=== PATIENT | female | born 1980 | race Caucasian/White ===

== ENCOUNTER 2017-09-22 07:39 | Emergency (ER) | payer SELFPAY ==
[2017-09-22] MEDS ORDERED: Alum Hydrox/Mag Hydrox/Simeth 15 ML, Metoclopramide 5 MG, Lidocaine 2% 5 ML PO ONE ×3 (07:53)
--- NOTE | 2017-09-22 07:57 | EDM.PDOC ---
ED HPI GENERAL MEDICAL PROBLEM - General Chief Complaint: General Stated Complaint: SHORTNESS OF BREATH Time Seen by Provider: 09/22/17 07:49 - History of Present Illness INITIAL COMMENTS - FREE TEXT/NARRATIVE: HISTORY AND PHYSICAL: History of present illness: The patient is a healthy 36-year-old female who presents after stating that she was in the bathtub about an hour ago and smoking a cigarette and accidentally fell asleep and believes that she swallowed half of her cigarette which was limited at that time. She has had no stomach upset but feels like there is discomfort in the back of her throat and she feels like she can't catch her breath. She has no chest pain no specific oral pain and has been drinking chilled Gatorade without difficulty. She has no stomach upset no nausea no vomiting and is concerned. She has no other complaints and was in her normal state of health prior to that. Review of systems: As per history of present illness and below otherwise all systems reviewed and negative. Past medical history: As per history of present illness and as reviewed below otherwise noncontributory. Surgical history: As per history of present illness and as reviewed below otherwise noncontributory. Social history: No reported history of drug or alcohol abuse. Family history: As per history of present illness and as reviewed below otherwise noncontributory. Physical exam: Gen.: Well-developed well-nourished female who is nontoxic and vital signs have been reviewed by me. She is phonating clearly and easily without hoarse or muffled voice and is swallowing fluids in the ED. She seems somewhat anxious HEENT: Atraumatic, normocephalic, pupils reactive, negative for conjunctival pallor or scleral icterus, mucous membranes moist, throat clear, neck supple, nontender, trachea midline. There are no oral pharyngeal lesions sores or erythema appreciated Lungs: Clear to auscultation, breath sounds equal bilaterally, chest nontender. No worker breathing stridor or sensory muscle use Heart: S1S2, regular rate and rhythm no evidence of murmur and no tachycardia Abdomen: Soft, nondistended, nontender. NABS Pelvis: Deferred Genitourinary: Deferred. Rectal: Deferred. Extremities: Atraumatic, negative for cords or calf pain. Neurovascular unremarkable. Neuro: Awake, alert, oriented. Cranial nerves II through XII unremarkable. Cerebellum unremarkable. Motor and sensory unremarkable throughout. Exam nonfocal. Diagnostics: [] Therapeutics: GI cocktail Impression: Accidental ingestion with odontophagia stable Definitive disposition and diagnosis as appropriate pending reevaluation and review of above. throat Pain Score (Numeric/FACES): 4 - Related Data Allergies Allergy/AdvReac Type Severity Reaction Status Date / Time codeine Allergy Itching Verified 09/22/17 07:45 Home Meds: Home Meds . [No Known Home Meds] 09/22/17 [History] ED ROS GENERAL - Review of Systems Review Of Systems: ROS reveals no pertinent complaints other than HPI. ED EXAM, GENERAL - Physical Exam Exam: See Below (See dictation) Course - Vital Signs Last Recorded V/S: Last Vital Signs Temp 36.2 C 09/22/17 07:45 Pulse 94 09/22/17 07:45 Resp 18 09/22/17 07:45 BP 119/74 09/22/17 07:45 Pulse Ox 100 09/22/17 07:45 - Orders/Labs/Meds Orders: Active Orders 24 hr Category Date Time Status GI Cocktail with Reglan 25 ML PO x 1 Med 09/22/17 07:53 Ordered Alum Hydrox/Mag Hydrox/Simeth [Mag-Al Plus] 15 ml Metoclopramide [Reglan] 5 mg Lidocaine 2% [Xylocaine 2% Viscous] 5 ml PO ONETIME Departure - Departure Time of Disposition: 07:56 Disposition: Home, Self-Care 01 Condition: Good Clinical Impression: Throat pain - Discharge Information Additional Instructions: The following information is given to patients seen in the emergency department who are being discharged to home. This information is to outline your options for follow-up care. We provide all patients seen in our emergency department with a follow-up referral. The need for follow-up, as well as the timing and circumstances, are variable depending upon the specifics of your emergency department visit. If you don't have a primary care physician on staff, we will provide you with a referral. We always advise you to contact your personal physician following an emergency department visit to inform them of the circumstance of the visit and for follow-up with them and/or the need for any referrals to a consulting specialist. The emergency department will also refer you to a specialist when appropriate. This referral assures that you have the opportunity for followup care with a specialist. All of these measure are taken in an effort to provide you with optimal care, which includes your followup. Under all circumstances we always encourage you to contact your private physician who remains a resource for coordinating your care. When calling for followup care, please make the office aware that this follow-up is from your recent emergency room visit. If for any reason you are refused follow-up, please contact the [facility] emergency department at and ask to speak to the emergency department charge nurse. [facility]- Internal Medicine and Family [address] [id number] Please continue to drink fluids and soft diet. Use [id number] Mylanta or lidocaine as prescribed. Please call and follow-up with primary care physician and return to ER as needed and as discussed. - My Orders Last 24 Hours: My Active Orders 09/22/17 07:53 GI Cocktail with Reglan 25 ML PO x 1 Alum Hydrox/Mag Hydrox/Simeth [Mag-Al Plus ] 15 ml Metoclopramide [Reglan] 5 mg Lidocaine 2% [Xylocaine 2% Viscous] 5 ml PO ONETIME - Assessment/Plan Last 24 Hours: My Active Orders 09/22/17 07:53 GI Cocktail with Reglan 25 ML PO x 1 Alum Hydrox/Mag Hydrox/Simeth [Mag-Al Plus ] 15 ml Metoclopramide [Reglan] 5 mg Lidocaine 2% [Xylocaine 2% Viscous] 5 ml PO ONETIME
--- NOTE | 2017-09-22 14:47 | CR ---
EXAM DATE: 09/22/17 PATIENT'S AGE: 36 Patient: SATHYA QUINTANILLA Facility: [place], [place] Site . Site : 1980 Study: XRay ST Neck [id number]/4/2017 8:47:40 AM Ordering Physician: Jose Luis Briseno Final Report: HISTORY: Possible foreign body ingestion. Technique: Two views of the neck. Comparison: None. Findings: Metallic jewelry in the oropharynx. No other radiopaque foreign body. Airway is patent. Cervical spine is within normal limits. Impression: Metallic jewelry in the oropharynx. No other radiopaque foreign body. Dictated by Chuck Girard MD @ Sep 22 2017 8:50AM (Electronic Signature) Report Signed by Proxy. [facility]ITAL[facility]acio
--- NOTE | 2017-09-22 14:48 | CR ---
EXAM DATE: 09/22/17 PATIENT'S AGE: 36 Patient: SATHYA QUINTANILLA Facility: [place], [place] Site . Site : 1980 Study: XRay Chest [id number]/4/2017 8:48:24 AM Ordering Physician: Jose Luis Briseno Final Report: HISTORY: Shortness of breath. Nausea. Possible foreign body ingestion. Technique: Frontal view of the chest. Comparison: None. Findings: No radiopaque foreign body. No airspace consolidation. No pleural effusion or pneumothorax. Pulmonary vasculature is within normal limits. Cardiomediastinal silhouette is within normal limits. Impression: No acute findings. No radiopaque foreign body. Dictated by Chuck Girard MD @ Sep 22 2017 8:53AM (Electronic Signature) Report Signed by Proxy. [facility] SYSTEM[facility]acio
== END 2017-09-22 09:18 | disposition home or self-care (01) ==
LOC: MW.ED 07:39
DX: T18.9XXA Foreign body of alimentary tract, part unspecified, initial encounter (principal); R07.0 Pain in throat; Z88.5 Allergy status to narcotic agent
CPT/HCPCS: 70360; 71010; 99283; A9270

== ENCOUNTER 2017-12-21 19:00 | Emergency (ER) | payer SELFPAY ==
--- NOTE | 2017-12-21 19:46 | EDM.PDOC ---
ED HPI GENERAL MEDICAL PROBLEM - General Stated Complaint: fever, vomiting Time Seen by Provider: 12/21/17 19:46 Source of Information: Reports: Patient History Limitations: Reports: No Limitations - History of Present Illness INITIAL COMMENTS - FREE TEXT/NARRATIVE: HISTORY AND PHYSICAL: []37-year-old female presenting with cough, fevers or throat flu History of Present Illness: []She has been sick for the last 2 days Review of Systems: As per history of present illness and below otherwise all systems reviewed and negative. Past medical history: As per history of present illness and as reviewed below otherwise noncontributory. Surgical history: As per history of present illness and as reviewed below otherwise noncontributory. Social history: No reported history of drug or alcohol abuse. Family history: As per history of present illness and as reviewed below otherwise noncontributory. Physical exam: Alert and oriented female answering questions appropriately. ribs hurt when she coughs. Beginning in full sentences without any shortness of breath HEENT: Atraumatic, normocehpalic, pupils reactive, negative for conjunctival pallor or scleral icterus, mucous membranes moist, throat clear, neck supple, nontender, trachea midline. Tympanic membranes without erythema Lungs: Clear to auscultation, breath sounds equal bilaterally, chest non tender. Heart: S1S2, regular, negative for clicks, rubs, or JVD. Abdomen: Soft, nondistended, nontender. Negative for masses or hepatossplenmegaly. Negative for costovertebral tenderness. Pelvis: Stable nontender. Genitourinary: Deferred. Rectal: Deferred Extremities: Atraumatic, negative for cords or calf pain. Neurovascular unremarkable. Neuro: Awake, alert, oriented. Cranial nerves II through XII unremarkable. Cerebellum unremarkable. Motor and sensory unremarkable throughout. Exam nonfocal. Discussed with the patient and significant other that it is not influenza or strep but is a flulike illness Diagnostics: [Influenza rapid strep] Therapeutics: [] Impression: [URI Plan: [Discharged to home sleep Cula-ybg-[id number] medications as discussed for discomfort Off work times in a 24 hours] Definitive disposition and diagnosis as appropriate pending reevaluation and review of above. Onset: Gradual Duration: Day(s): (2.5) Location: Reports: Generalized Quality: Reports: Ache Severity: Moderate Improves with: Reports: None Worsens with: Reports: None no pain Pain Score (Numeric/FACES): 7 generlaized Pain Score (Numeric/FACES): 7 - Related Data Allergies Allergy/AdvReac Type Severity Reaction Status Date / Time codeine Allergy Itching Verified 12/21/17 19:38 Home Meds: Home Meds . 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: Musculoskeletal History: Reports: None Neurological History: Reports: None Psychiatric History: Reports: None Endocrine/Metabolic History: Reports: None Hematologic History: Reports: None Oncologic (Cancer) History: Reports: None Dermatologic History: Reports: None - Infectious Disease History Infectious Disease History: Reports: None - Past Surgical History Head Surgeries/Procedures: Reports: None GI Surgical History: Reports: None Female Surgical History: Reports: Section Social & Family History - Family History Family Medical History: Noncontributory - Tobacco Use Smoking Status *Q: Current Every Day Smoker Years of Tobacco use: 15 Packs/Tins Daily: 0.5 - Caffeine Use Caffeine Use: Reports: Coffee, Energy Drinks - Recreational Drug Use Recreational Drug Use: Yes Drug Use in Last 12 Months: Yes Recreational Drug Type: Reports: Marijuana/Hashish ED ROS GENERAL - Review of Systems Review Of Systems: ROS reveals no pertinent complaints other than HPI. ED EXAM, GENERAL - Physical Exam Exam: See Below (See dictation) Course - Vital Signs Last Recorded V/S: Last Vital Signs Temp 36.9 C 12/21/17 19:38 Pulse 77 12/21/17 19:38 Resp 18 12/21/17 19:38 BP 110/65 12/21/17 19:38 Pulse Ox 98 12/21/17 19:38 - Orders/Labs/Meds Orders: Active Orders 24 hr Category Date Time Status CULTURE STREP A CONFIRMATION [RM] Stat Lab 12/21/17 19:48 Results STREP SCRN A RAPID W CULT CONF [RM] Stat Lab 12/21/17 19:48 Results Departure - Departure Time of Disposition: 20:29 Disposition: Home, Self-Care 01 Condition: Good Clinical Impression: URI (upper respiratory infection) Qualifiers: URI type: unspecified viral URI Qualified Code(s): J06.9 - Acute upper respiratory infection, unspecified - Discharge Information Instructions: Upper Respiratory Infection, Adult, Rjer-[id number] Referrals: PCP,None [Primary Care Provider] - Additional Instructions: The following information is given to patients seen in the emergency department who are being discharged to home. This information is to outline your options for follow-up care. We provide all patients seen in our emergency department with a follow-up referral. The need for follow-up, as well as the timing and circumstances, are variable depending upon the specifics of your emergency department visit. If you don't have a primary care physician on staff, we will provide you with a referral. We always advise you to contact your personal physician following an emergency department visit to inform them of the circumstance of the visit and for follow-up with them and/or the need for any referrals to a consulting specialist. The emergency department will also refer you to a specialist when appropriate. This referral assures that you have the opportunity for followup care with a specialist. All of these measure are taken in an effort to provide you with optimal care, which includes your followup. Under all circumstances we always encourage you to contact your private physician who remains a resource for coordinating your care. When calling for followup care, please make the office aware that this follow-up is from your recent emergency room visit. If for any reason you are refused follow-up, please contact the [facility] emergency department at and asked to speak to the emergency department charge nurse. Flulike illness/upper respiratory infection [id number] medications for discomfort as discussed Work note return to work on 12/23/17 - My Orders Last 24 Hours: My Active Orders 12/21/17 19:48 CULTURE STREP A CONFIRMATION [RM] Stat STREP SCRN A RAPID W CULT CONF [] Stat - Assessment/Plan Last 24 Hours: My Active Orders 12/21/17 19:48 CULTURE STREP A CONFIRMATION [RM] Stat STREP SCRN A RAPID W CULT CONF [] Stat
== END 2017-12-21 20:43 | disposition home or self-care (01) ==
LOC: MW.ED 19:00
DX: J06.9 Acute upper respiratory infection, unspecified (principal); Z88.5 Allergy status to narcotic agent; F17.210 Nicotine dependence, cigarettes, uncomplicated
CPT/HCPCS: 87081; 87804; 87880; 99282; 99283